=== PATIENT | female | born 1955 | race Caucasian/White ===

== ENCOUNTER 2017-03-07 06:48 | Day surgery (SDC) | payer OTHER, MEDICAID ==
[2017-03-07] MEDS ORDERED: SIMETHICONE 40 MG/0.6 ML ML ONE (07:35)
[2017-03-07] MEDS ORDERED: MIDAZOLAM HCL 5 MG/5 ML VIAL ONE (07:35)
[2017-03-07] MEDS: fentaNYL CITRATE/PF 100 MCG/2 ML AMP ONE ×3 (09:48→09:56)
[2017-03-07] MEDS: MIDAZOLAM HCL 5 MG/5 ML VIAL ONE ×3 (09:48→09:56)
[2017-03-07 15:57] VITALS: BP_SYST 132
== END 2017-03-07 11:30 | disposition home or self-care (01) ==
LOC: SDS 06:48 → SMU 06:52 → SDS 11:30
PROVIDERS: ATTEND Internal Medicine
DX: Z09 Encounter for follow-up examination after completed treatment for conditions other than malignant neoplasm (principal); Z86.010 Personal history of colon polyps; D12.2 Benign neoplasm of ascending colon; D12.4 Benign neoplasm of descending colon; D12.5 Benign neoplasm of sigmoid colon; I10 Essential (primary) hypertension; Z68.35 Body mass index [BMI] 35.0-35.9, adult
CPT/HCPCS: 45380; 45381; 45385; 88305; J2250; J3010; J7030